=== PATIENT | male | born 2000 | race Hispanic/Latino ===

== ENCOUNTER 2019-08-16 15:51 | Emergency (ER) | payer SELFPAY ==
[2019-08-16 17:29] VITALS: BP 135/70; TEMP 98; O2SAT 100
--- NOTE | 2019-08-19 17:11 | ER ---
Nurse's Notes [facility] Name: Arslan Couch Age: 19 yrs Sex: Male : 2000 Arrival Date: 08/16/2019 Time: 15:54 Bed 12 Private MD: Diagnosis: Asthma Presentation: 08/15 16:13 Chief complaint: Patient states: " I had some SOB over Day and missed work and ph my boss wanted me to come up here and get checked out." Denies SOB at this time, also denies cough or fever, hx of asthma. Coronavirus screen: Patient denies a cough. Patient denies shortness of breath or difficulty breathing. Patient denies measured and/or subjective temperature greater than 100.4F prior to today's visit. Patient denies travel on a cruise ship or to a country the [facility] currently lists as an affected area. Patient denies contact with known and/or suspected case of COVID-19. Ebola Screen: No symptoms or risks identified at this time. Initial Sepsis Screen: Does the patient meet any 2 criteria? No. Patient's initial sepsis screen is negative. Does the patient have a suspected source of infection? No. Patient's initial sepsis screen is negative. Risk Assessment: Do you want to hurt yourself or someone else? Patient reports no desire to harm self or others. Onset of symptoms was August 16, 2019. 16:13 Method Of Arrival: Ambulatory ph 16:13 Acuity: GEOVANI 4 ph Historical: - Allergies: 16:15 No Known Allergies; ph - PMHx: 16:15 Asthma; ph - PSHx: 16:15 None; ph - Immunization history:: Adult Immunizations unknown. - Social history:: Smoking status: Patient denies any tobacco usage or history of. Screenin:36 Abuse screen: Denies threats or abuse. Denies injuries from another. Nutritional ph screening: No deficits noted. Tuberculosis screening: No symptoms or risk factors identified. Fall Risk None identified. Assessment: 16:36 General: Appears in no apparent distress. comfortable, well groomed, Behavior is calm, ph cooperative, appropriate for age, Denies fever, feeling ill. Pain: Denies pain. Neuro: Level of Consciousness is awake, alert, obeys commands, Oriented to person, place, time, situation. Cardiovascular: Capillary refill < 3 seconds Patient's skin is warm and dry. Respiratory: Airway is patent Respiratory effort is even, unlabored, Respiratory pattern is regular, symmetrical, Denies cough, shortness of breath. Derm: Skin is intact, is healthy with good turgor, Skin is pink, warm \\T\\ dry. Vital Signs: 16:13 BP 135 / 70; Pulse 71; Resp 18; Temp 98.0; Pulse Ox 100% on R/A; Weight 83.91 kg; ph ED Course: 15:54 Patient arrived in ED. ag5 15:55 Parth Moraes PA is PHCP. [facility] 15:55 Kenn Dickson MD is Attending Physician. [facility] 16:15 Triage completed. 16:15 Arm band placed on Patient placed in an exam room. 16:35 Svetlana Sanchez, RN is Primary Nurse. 16:36 Patient has correct armband on for positive identification. Bed in low position. Call ph light in reach. Side rails up X 1. Door closed. Noise minimized. Warm blanket given. 16:37 No provider procedures requiring assistance completed. Patient did not have IV access ph during this emergency room visit. Administered Medications: No medications were administered Outcome: 16:53 Discharge ordered by . [facility] 17:15 Discharged to home ambulatory. 17:15 Condition: good 17:15 Discharge instructions given to patient, Instructed on discharge instructions, follow up and referral plans. medication usage, Demonstrated understanding of instructions, follow-up care, medications, Prescriptions given X 1. 17:15 Patient left the ED. Signatures: Parth Moraes PA PA Eun Barth RN RN Svetlana Sanchez RN RN [facility] ag[facility]
--- NOTE | 2019-08-19 17:11 | EDPHYS ---
Physician Documentation [facility] Name: Arslan Couch Age: 19 yrs Sex: Male : 2000 Arrival Date: 08/16/2019 Time: 15:54 Bed 12 Private MD: ED Physician Kenn Dickson HPI: 08/15 16:46 This 19 yrs old Male presents to ER via Ambulatory with complaints of Asthma jmm Exacerbation. 16:46 The patient presents to the emergency department with wheezing, Current therapy: None. jmm Onset: The symptoms/episode began/occurred gradually, 4 day(s) ago. Modifying factors: The symptoms are alleviated by nothing, the symptoms are aggravated by nothing. Associated signs and symptoms: Pertinent negatives: fever. This is a 19 year old male with a history of asthma that presents to the ED with complaints of asthma beginning this Monday. States he was unable to go to work. patient states he feels better now. Patient states he needs clearance for work. . Historical: - Allergies: 16:15 No Known Allergies; ph - PMHx: 16:15 Asthma; ph - PSHx: 16:15 None; ph - Immunization history:: Adult Immunizations unknown. - Social history:: Smoking status: Patient denies any tobacco usage or history of. ROS: 16:46 Constitutional: Negative for fever, chills, and weight loss, Cardiovascular: Negative jmm for chest pain, palpitations, and edema, Respiratory: Negative for shortness of breath, cough, wheezing, and pleuritic chest pain, Abdomen/GI: Negative for abdominal pain, nausea, vomiting, diarrhea, and constipation, Neuro: Negative for headache, weakness, numbness, tingling, and seizure. 16:46 All other systems are negative. Exam: 16:46 Constitutional: This is a well developed, well nourished patient who is awake, alert, jmm and in no acute distress. Head/Face: atraumatic. Eyes: EOMI, no conjunctival erythema appreciated ENT: Moist Mucus Membranes Neck: Trachea midline, Supple Chest/axilla: Normal chest wall appearance and motion. 16:46 Abdomen/GI: Non distended, soft Back: Normal ROM Skin: General appearance color normal MS/ Extremity: Moves all extremities, no obvious deformities appreciated, no edema noted to the lower extremities Neuro: Awake and alert, normal gait Psych: Behavior is normal, Mood is normal, Patient is cooperative and pleasant 16:46 Cardiovascular: Rate: normal, Rhythm: regular. 16:46 Respiratory: the patient does not display signs of respiratory distress, Respirations: normal, Breath sounds: are clear throughout. Vital Signs: 16:13 BP 135 / 70; Pulse 71; Resp 18; Temp 98.0; Pulse Ox 100% on R/A; Weight 83.91 kg; ph MDM: 16:23 Patient medically screened. [facility] 16:49 Data reviewed: vital signs, nurses notes. Counseling: I had a detailed discussion with dot the patient and/or guardian regarding: the historical points, exam findings, and any diagnostic results supporting the discharge/admit diagnosis, the need for outpatient follow up, to return to the emergency department if symptoms worsen or persist or if there are any questions or concerns that arise at home. ED course: Patient is alert and non toxic in appearance. No signs of resp distress. Patient advised to follow up with pcp and otherwise given strict return precautions. Patient understood and agrees with the plan of care. . Administered Medications: No medications were administered Disposition: 08/16 07:48 Co-signature as Attending Physician, Kenn Dickson MD I agree with the assessment and naomie plan of care. Disposition: 08/16/19 16:53 Discharged to Home. Impression: Asthma. - Condition is Stable. - Prescriptions for Albuterol Sulfate 90 mcg/actuation - inhale 1-2 puff by INHALATION route every 4-6 hours; 1 Inhaler. - Work release form, Medication Reconciliation Form, Thank You Letter, Antibiotic Education, Prescription Opioid Use form. - Follow up: Private Physician; When: 2 - 3 days; Reason: Recheck today's complaints, Continuance of care, Re-evaluation by your physician. Signatures: Kenn Dickson MD MD cha Mickail, Joel, PA PA jmm Smirch, Shelby, RN RN ss Svetlana Sanchez RN RN ph Corrections: (The following items were deleted from the chart) 08/15 17:15 16:53 08/16/2019 16:53 Discharged to Home. Impression: Asthma. Condition is Stable. ss Forms are Medication Reconciliation Form, Thank You Letter, Antibiotic Education, Prescription Opioid Use. Follow up: Private Physician; When: 2 - 3 days; Reason: Recheck today's complaints, Continuance of care, Re-evaluation by your physician. dot
== END 2019-08-16 17:15 | disposition home or self-care (01) ==
LOC: ER 15:51
DX: J45.909 Unspecified asthma, uncomplicated (principal)
CPT/HCPCS: 99282

== ENCOUNTER 2019-11-08 14:39 | Emergency (ER) | payer SELFPAY ==
--- NOTE | 2019-11-08 15:34 | EDPHYS ---
Physician Documentation [facility] Name: Arslan Couch Age: 19 yrs Sex: Male : 2000 Arrival Date: 11/08/2019 Time: 14:41 Bed 13 Private MD: ED Physician Kenn Dickson HPI: 11/07 15:26 This 19 yrs old Male presents to ER via Ambulatory with complaints of Leg naomie Injury. 15:26 The patient presents with pain, that is acute. The complaints affect the lateral aspect naomie of right calf. Context: resulted from a direct blow. Onset: The symptoms/episode began/occurred just prior to arrival. Modifying factors: The symptoms are alleviated by nothing. the symptoms are aggravated by nothing. Associated signs and symptoms: The patient has no apparent associated signs or symptoms. Treatment prior to arrival includes: no previous treatment. Severity of symptoms: At their worst the symptoms were very mild, in the emergency department the symptoms have resolved. The patient has not experienced similar symptoms in the past. Historical: - Allergies: 14:45 No Known Allergies; ll1 - PMHx: 14:45 Asthma; ll1 - PSHx: 14:45 None; ll1 - Immunization history:: Flu vaccine is not up to date. - Social history:: Smoking status: Patient denies any tobacco usage or history of. Patient/guardian denies using alcohol, street drugs. - Family history:: not pertinent. ROS: 15:26 Constitutional: Negative for fever, chills, and weight loss, Eyes: Negative for injury, naomie pain, redness, and discharge, ENT: Negative for injury, pain, and discharge, Neck: Negative for injury, pain, and swelling, Cardiovascular: Negative for chest pain, palpitations, and edema, Respiratory: Negative for shortness of breath, cough, wheezing, and pleuritic chest pain, Abdomen/GI: Negative for abdominal pain, nausea, vomiting, diarrhea, and constipation, Back: Negative for injury and pain, : Negative for injury, bleeding, discharge, and swelling, Skin: Negative for injury, rash, and discoloration, Neuro: Negative for headache, weakness, numbness, tingling, and seizure, Psych: Negative for depression, anxiety, suicide ideation, homicidal ideation, and hallucinations, Allergy/Immunology: Negative for hives, rash, and allergies, Endocrine: Negative for neck swelling, polydipsia, polyuria, polyphagia, and marked weight changes, Hematologic/Lymphatic: Negative for swollen nodes, abnormal bleeding, and unusual bruising. 15:26 MS/extremity: Positive for pain, no pain on walking, palpitation, no co of pain at this time. Exam: 15:26 Constitutional: This is a well developed, well nourished patient who is awake, alert, naomie and in no acute distress. Head/Face: Normocephalic, atraumatic. Eyes: Pupils equal round and reactive to light, extra-ocular motions intact. Lids and lashes normal. Conjunctiva and sclera are non-icteric and not injected. Cornea within normal limits. Periorbital areas with no swelling, redness, or edema. ENT: Nares patent. No nasal discharge, no septal abnormalities noted. Tympanic membranes are normal and external auditory canals are clear. Oropharynx with no redness, swelling, or masses, exudates, or evidence of obstruction, uvula midline. Mucous membranes moist. Neck: Trachea midline, no thyromegaly or masses palpated, and no cervical lymphadenopathy. Supple, full range of motion without nuchal rigidity, or vertebral point tenderness. No Meningismus. Chest/axilla: Normal chest wall appearance and motion. Nontender with no deformity. No lesions are appreciated. Cardiovascular: Regular rate and rhythm with a normal S1 and S2. No gallops, murmurs, or rubs. Normal PMI, no JVD. No pulse deficits. Respiratory: Lungs have equal breath sounds bilaterally, clear to auscultation and percussion. No rales, rhonchi or wheezes noted. No increased work of breathing, no retractions or nasal flaring. Abdomen/GI: Soft, non-tender, with normal bowel sounds. No distension or tympany. No guarding or rebound. No evidence of tenderness throughout. Back: No spinal tenderness. No costovertebral tenderness. Full range of motion. Male : Normal genitalia with no discharge or lesions. Skin: Warm, dry with normal turgor. Normal color with no rashes, no lesions, and no evidence of cellulitis. Neuro: Awake and alert, GCS 15, oriented to person, place, time, and situation. Cranial nerves II-XII grossly intact. Motor strength 5/5 in all extremities. Sensory grossly intact. Cerebellar exam normal. Normal gait. Psych: Awake, alert, with orientation to person, place and time. Behavior, mood, and affect are within normal limits. 15:26 Musculoskeletal/extremity: Extremities: all appear grossly normal, with no appreciated pain with palpation, ROM: no acute changes, intact in all extremities, full active range of motion, full passive range of motion, Circulation is intact in all extremities. Sensation intact. Compartment Syndrome exam of affected extremity: is normal. DVT Exam: No signs of deep vein thrombosis. no pain, no swelling, no tenderness, negative Homans' sign noted on exam, no appreciated bluish discoloration, no erythema, no increased warmth. Vital Signs: 14:45 BP 149 / 61; Pulse 86; Resp 18; Temp 98.1; Pulse Ox 100% ; Weight 108.86 kg; Height 5 ll1 ft. 7 in. (170.18 cm); Pain 2/10; 14:45 Body Mass Index 37.59 (108.86 kg, 170.18 cm) ll1 MDM: 14:51 Patient medically screened. [facility] 15:29 Differential diagnosis: closed fracture, contusion. Data reviewed: vital signs, nurses naomie notes. Data interpreted: disk sharpener: not applicable for this patient encounter. rate is 86 beats/min, rhythm is regular, Pulse oximetry: on room air is 100 %. Counseling: I had a detailed discussion with the patient and/or guardian regarding: the historical points, exam findings, and any diagnostic results supporting the discharge/admit diagnosis, the need for outpatient follow up, for definitive care, a family practitioner. ED course: no treatment, follow up as needed. Administered Medications: No medications were administered Disposition: 11/08/19 15:33 Discharged to Home. Impression: Pain in left lower leg - contusion. - Condition is Stable. - Discharge Instructions: Musculoskeletal Pain, Cryotherapy, [id number], Cryotherapy, Form - Excuse from Work, School, or Physical Activity, Form - Return To Work. - Medication Reconciliation Form, Thank You Letter, Antibiotic Education, Prescription Opioid Use form. - Follow up: Private Physician; When: 2 - 3 days; Reason: Recheck today's complaints, Re-evaluation by your physician. - Problem is new. - Symptoms have improved. Signatures: Kenn Dickson MD MD cha Lewis, Lynsay RN RN ll1 Cyndie Simon RN RN jr10 Corrections: (The following items were deleted from the chart) 15:45 15:33 11/08/2019 15:33 Discharged to Home. Impression: Pain in left lower leg - jr10 contusion. Condition is Stable. Forms are Medication Reconciliation Form, Thank You Letter, Antibiotic Education, Prescription Opioid Use. Follow up: Private Physician; When: 2 - 3 days; Reason: Recheck today's complaints, Re-evaluation by your physician. Problem is new. Symptoms have improved. naomie
--- NOTE | 2019-11-08 15:34 | ER ---
Nurse's Notes [facility] Name: Arslan Couch Age: 19 yrs Sex: Male : 2000 Arrival Date: 11/08/2019 Time: 14:41 Bed 13 Private MD: Diagnosis: Pain in left lower leg-contusion Presentation: 11/07 14:45 Chief complaint: Patient states: Ladder fell onto right leg 2 days ago. His boss wanted ll1 him to get checked before returning to work. Coronavirus screen: Client denies travel out of the [place] in the last 14 days. At this time, the client does not indicate any symptoms associated with coronavirus-19. Ebola Screen: Patient denies travel to an Ebola-affected area in the 21 days before illness onset. Initial Sepsis Screen: Does the patient meet any 2 criteria? No. Patient's initial sepsis screen is negative. Risk Assessment: Do you want to hurt yourself or someone else? Patient reports no desire to harm self or others. Onset of symptoms was November 06, 2019. 14:45 Acuity: GEOVANI 4 ll1 14:45 Method Of Arrival: Ambulatory ll1 Historical: - Allergies: 14:45 No Known Allergies; ll1 - PMHx: 14:45 Asthma; ll1 - PSHx: 14:45 None; ll1 - Immunization history:: Flu vaccine is not up to date. - Social history:: Smoking status: Patient denies any tobacco usage or history of. Patient/guardian denies using alcohol, street drugs. - Family history:: not pertinent. Screenin:00 Abuse screen: Denies threats or abuse. Denies injuries from another. Nutritional jr10 screening: No deficits noted. Tuberculosis screening: No symptoms or risk factors identified. Fall Risk None identified. Assessment: 15:00 General: Appears in no apparent distress. Behavior is calm, cooperative, appropriate jr10 for age. Pain: Complains of pain in lateral aspect of right calf. Neuro: No deficits noted. Cardiovascular:. Respiratory: Airway is patent Respiratory effort is even, unlabored, Respiratory pattern is regular, symmetrical. Derm: No deficits noted. No signs and/or symptoms reported regarding the dermatologic system. Musculoskeletal: Circulation, motion, and sensation intact. Capillary refill < 3 seconds, Range of motion: intact in all extremities, Swelling absent. Injury Description: pt reports that he had a metal ladder fall on his right lower leg at work 2 days ago, reports pain at the time, denies pain at present; states that his boss wanted him to come get checked out before he can return to work; pt ambulatory independently with stable and steady gait noted; no swelling or skin breakdown noted to area, no tenderness noted to palpation. Vital Signs: 14:45 BP 149 / 61; Pulse 86; Resp 18; Temp 98.1; Pulse Ox 100% ; Weight 108.86 kg; Height 5 ll1 ft. 7 in. (170.18 cm); Pain 2/10; 14:45 Body Mass Index 37.59 (108.86 kg, 170.18 cm) ll1 ED Course: 14:41 Patient arrived in ED. ag5 14:45 Arm band placed on. 1 14:46 Triage completed. 1 14:51 Kenn Dickson MD is Attending Physician. [facility] 15:00 Patient has correct armband on for positive identification. Bed in low position. Call jr10 light in reach. 15:02 Cyndie Simon, RN is Primary Nurse. [facility] 15:17 No provider procedures requiring assistance completed. Patient did not have IV access jr10 during this emergency room visit. Administered Medications: No medications were administered Outcome: 15:33 Discharge ordered by . [facility] 15:42 Discharged to home ambulatory. 10 15:42 Condition: good 15:42 Discharge instructions given to patient, Instructed on discharge instructions, follow up and referral plans. work note provided Demonstrated understanding of instructions, follow-up care. 15:45 Patient left the ED. jr10 Signatures: Kenn Dickson MD MD cha Gaskin, Ajare 5 Nina Bran RN RN 1 Cyndie Simon RN RN 10
[2019-11-08 16:36] VITALS: BP 149/61; TEMP 98.1; O2SAT 100
== END 2019-11-08 15:45 | disposition home or self-care (01) ==
LOC: ER 14:39
DX: S80.12XA Contusion of left lower leg, initial encounter (principal); W22.8XXA Striking against or struck by other objects, initial encounter; Y93.9 Activity, unspecified; Y92.89 Other specified places as the place of occurrence of the external cause
CPT/HCPCS: 99281

== ENCOUNTER 2020-04-20 09:04 | Emergency (ER) | payer SELFPAY ==
--- NOTE | 2020-04-20 13:21 | RAD REPORT ---
EXAM DESCRIPTION: Dan[place] Single View04/20/2020 12:41 pm CLINICAL HISTORY: Cough COMPARISON: none FINDINGS: The lungs appear clear of acute infiltrate. The heart is normal size IMPRESSION: No acute abnormalities displayed
--- NOTE | 2020-04-20 17:13 | ER ---
Nurse's Notes [facility] Name: Arslan Couch Age: 19 yrs Sex: Male : 2000 Arrival Date: 04/20/2020 Time: 09:06 Bed 26 Private MD: Diagnosis: Acute upper respiratory infection, unspecified Presentation: 04/20 09:47 Chief complaint: Patient states: The last time I cough, I spit and I throw up a little ca1 blood. Cough started Monday. Denies abdominal pain. Coronavirus screen: Client denies travel out of the [place] in the last 14 days. cough unrelated to allergies, vomiting. Ebola Screen: Patient negative for fever greater than or equal to 101.5 degrees Fahrenheit, and additional compatible Ebola Virus Disease symptoms Patient denies exposure to infectious person. Patient denies travel to an Ebola-affected area in the 21 days before illness onset. No symptoms or risks identified at this time. Initial Sepsis Screen: Does the patient meet any 2 criteria? No. Patient's initial sepsis screen is negative. Does the patient have a suspected source of infection? No. Patient's initial sepsis screen is negative. Risk Assessment: Do you want to hurt yourself or someone else? Patient reports no desire to harm self or others. Onset of symptoms was April 20, 2020. 09:47 Method Of Arrival: Ambulatory ca1 09:47 Acuity: GEOVANI 4 ca1 Historical: - Allergies: 09:50 No Known Allergies; ca1 - Home Meds: 09:50 None [Active]; ca1 - PMHx: 09:50 Asthma; ca1 - PSHx: 09:50 None; ca1 - Immunization history:: Flu vaccine is not up to date. - Social history:: Smoking status: Patient denies any tobacco usage or history of. Screenin:11 Abuse screen: Denies threats or abuse. Nutritional screening: No deficits noted. tw2 Tuberculosis screening: No symptoms or risk factors identified. Fall Risk None identified. Assessment: 12:30 Reassessment: Patient appears in no apparent distress at this time. Patient and/or tw2 family updated on plan of care and expected duration. Pain level reassessed. Patient is alert, oriented x 3, equal unlabored respirations, skin warm/dry/pink. 13:33 Reassessment: provider at bedside at this time. tw2 13:35 General: Appears in no apparent distress. obese, well groomed, Behavior is calm, tw2 cooperative, appropriate for age. Pain: Denies pain. Neuro: Level of Consciousness is awake, alert, obeys commands, Oriented to person, place, time, situation. Cardiovascular: Patient's skin is warm and dry. Respiratory: Reports cough that is non-productive, dry, Airway is patent Respiratory effort is even, unlabored, Respiratory pattern is regular, symmetrical. GI: Abdomen is round non-distended, obese, Reports vomited the other day when i coughed. : No signs and/or symptoms were reported regarding the genitourinary system. EENT: No signs and/or symptoms were reported regarding the EENT system. Musculoskeletal: Range of motion: intact in all extremities. 14:23 Reassessment: Patient appears in no apparent distress at this time. Patient and/or tw2 family updated on plan of care and expected duration. Pain level reassessed. Patient is alert, oriented x 3, equal unlabored respirations, skin warm/dry/pink. Vital Signs: 09:47 Pulse 94; Resp 16 S; Temp 98.1(TE); Pulse Ox 100% on R/A; Weight 113.4 kg (R); Height 5 ca1 ft. 7 in. (170.18 cm) (R); Pain 0/10; 09:50 BP 141 / 79; ca1 09:47 Body Mass Index 39.16 (113.40 kg, 170.18 cm) ca1 ED Course: 09:06 Patient arrived in ED. as 09:49 Triage completed. ca1 09:50 Arm band placed on right wrist. ca1 11:10 Kenn Wright PA is PHCP. cp 11:10 David Guerrero MD is Attending Physician. cp 12:03 Mandy Carver, FABIANA is Primary Nurse. tw2 12:11 Bed in low position. tw2 12:44 XRAY Chest (1 view) In Process Unspecified. EDMS 14:23 No provider procedures requiring assistance completed. Patient did not have IV access tw2 during this emergency room visit. Administered Medications: No medications were administered Outcome: 13:45 Discharge ordered by . cp 14:23 Patient left the ED. zb 14:23 Discharged to home ambulatory. tw2 14:23 Condition: stable 14:23 Discharge instructions given to patient, Instructed on discharge instructions, follow up and referral plans. medication usage, Demonstrated understanding of instructions, follow-up care, medications, Prescriptions given X 1. Addendum: 04/22/2020 12:37 Addendum: COVID-19 Result: Negative result given to RN to notify pt. Contacted by: SV. cheyenne calero Notified pt of negative COVID 19 swab results. Pt advised that even with a negative test result they should remain in isolation until symptom free for 3 days without medication. Pt also advised to return to the ED for worsening symptoms. Signatures: Dispatcher [employer] EDMS Carolynn Hoyos, RN RN Kenisha Torres Corey, PA PA cp Wise, Tara RN RN tw2 Maribel Curry RN Kiki Stewart RN RN zb
--- NOTE | 2020-04-20 17:13 | EDPHYS ---
Physician Documentation [facility] Name: Arslan Couhc Age: 19 yrs Sex: Male : 2000 Arrival Date: 04/20/2020 Time: 09:06 Bed 26 Private MD: ED Physician David Guerrero HPI: 04/20 11:40 This 19 yrs old Male presents to ER via Ambulatory with complaints of Vomiting.cp 11:40 The patient or guardian reports cough, that is intermittent, with productive sputum, cp blood tinged. 11:40 Onset: The symptoms/episode began/occurred 2 day(s) ago. Severity of symptoms: in the emergency department the symptoms. 11:40 Associated signs and symptoms: Pertinent negatives: chest pain, diarrhea, fever, cp nausea, sore throat, active vomiting. Historical: - Allergies: 09:50 No Known Allergies; ca1 - Home Meds: 09:50 None [Active]; ca1 - PMHx: 09:50 Asthma; ca1 - PSHx: 09:50 None; ca1 - Immunization history:: Flu vaccine is not up to date. - Social history:: Smoking status: Patient denies any tobacco usage or history of. ROS: 11:45 Respiratory: Positive for cough, Negative for shortness of breath, wheezing. cp 11:45 Constitutional: Negative for body aches, chills, fever, poor PO intake. cp 11:45 ENT: Negative for drainage from ear(s), ear pain, sore throat. 11:45 Cardiovascular: Negative for chest pain, palpitations. 11:45 Abdomen/GI: Negative for abdominal pain, nausea, diarrhea, constipation, active cp vomiting. 11:45 Back: Negative for pain at rest, pain with movement. 11:45 Neuro: Negative for altered mental status, headache, weakness. 11:45 All other systems are negative. Exam: 11:52 Constitutional: The patient appears in no acute distress, alert, awake, non-toxic, well cp developed, well nourished, obese. 11:52 Head/Face: Normocephalic, atraumatic. cp 11:52 Eyes: Periorbital structures: appear normal, Conjunctiva: normal, no exudate, no injection, Sclera: no appreciated abnormality, Lids and lashes: appear normal, bilaterally. 11:52 ENT: External ear(s): are unremarkable, Nose: is normal, Mouth: Lips: moist, Oral mucosa: pink and intact, moist, Posterior pharynx: Airway: no evidence of obstruction, patent, Tonsils: are normal in appearance, erythema, is not appreciated, exudate, is not appreciated. 11:52 Neck: ROM/movement: Meningeal signs: are not present, Lymph nodes: no appreciated lymphadenopathy. 11:52 Chest/axilla: Inspection: normal, Palpation: is normal, no crepitus, no tenderness. 11:52 Cardiovascular: Rate: normal, Rhythm: regular, Edema: is not appreciated. 11:52 Respiratory: the patient does not display signs of respiratory distress, Respirations: normal, no use of accessory muscles, no retractions, labored breathing, is not present, Breath sounds: are clear throughout, no decreased breath sounds, no stridor, no wheezing. 11:52 Abdomen/GI: Inspection: abdomen appears normal, Palpation: abdomen is soft and non-tender, in all quadrants. 11:52 Back: pain, is absent, ROM is normal. Vital Signs: 09:47 Pulse 94; Resp 16 S; Temp 98.1(TE); Pulse Ox 100% on R/A; Weight 113.4 kg (R); Height 5 ca1 ft. 7 in. (170.18 cm) (R); Pain 0/10; 09:50 BP 141 / 79; ca1 09:47 Body Mass Index 39.16 (113.40 kg, 170.18 cm) ca1 MDM: 11:16 Patient medically screened. cp 13:45 Data reviewed: vital signs, nurses notes, radiologic studies, plain films, and as a cp result, I will discharge patient. 13:45 Counseling: I had a detailed discussion with the patient and/or guardian regarding: the cp historical points, exam findings, and any diagnostic results supporting the discharge/admit diagnosis, radiology results, to return to the emergency department if symptoms worsen or persist or if there are any questions or concerns that arise at home. 04/20 13:44 Order name: COVID-19 : Document "Date of Symptom Onset" if Symptomatic. cp 04/20 11:32 Order name: XRAY Chest (1 view); Complete Time: 13:37 cp 04/20 13:37 Interpretation: Report review. cp Administered Medications: No medications were administered Disposition: 14:00 Chart complete. cp 18:21 Co-signature as Attending Physician, David Guerrero MD. ma2 Disposition: 04/20/20 13:45 Discharged to Home. Impression: Acute upper respiratory infection, unspecified. - Condition is Stable. - Discharge Instructions: Upper Respiratory Infection, Adult. - Prescriptions for Tessalon Perles 100 mg Oral Capsule - take 2 capsule by ORAL route every 8 hours As needed; 30 capsule. - Medication Reconciliation Form, Thank You Letter, Antibiotic Education, Prescription Opioid Use, Work release form form. - Follow up: Private Physician; When: 1 - 2 days; Reason: Worsening of condition. - Problem is new. - Symptoms have improved. Signatures: Dispatcher [employer] EDMS Kenn Wright PA PA cp Alzahri, Mohammad, MD MD ri2 Maribel Curry RN Kiki Stewart RN RN joanna Corrections: (The following items were deleted from the chart) 14:23 13:45 04/20/2020 13:45 Discharged to Home. Impression: Acute upper respiratory zb infection, unspecified. Condition is Stable. Forms are Work release form, Medication Reconciliation Form, Thank You Letter, Antibiotic Education, Prescription Opioid Use. Follow up: Private Physician; When: 1 - 2 days; Reason: Worsening of condition. Problem is new. Symptoms have improved. cp
[2020-04-20 17:43] VITALS: TEMP 98.1; O2SAT 100
[2020-04-20 17:44] VITALS: BP 141/79
== END 2020-04-20 14:23 | disposition home or self-care (01) ==
LOC: ER 09:04
DX: J06.9 Acute upper respiratory infection, unspecified (principal); Z20.822 Contact with and (suspected) exposure to COVID-19
CPT/HCPCS: 71045; 99283; U0002